=== PATIENT | female | born 1955 | race Two or more races ===

== ENCOUNTER → 2021-02-02 | Emergency (ER) | payer OTHER ==
[~2021-02-02] MED LIST: GLUCOPHAGE XR500 MG; NORVASC2.5 M1; SYNTHROID50 MCG; VASOTEC5 MG
== END | disposition home or self-care (01) ==
LOC: ER 09:46
DX: S61.022A Laceration with foreign body of left thumb without damage to nail, initial encounter (principal); W26.8XXA Contact with other sharp object(s), not elsewhere classified, initial encounter; Y93.89 Activity, other specified; Y92.018 Other place in single-family (private) house as the place of occurrence of the external cause; Y99.8 Other external cause status

== ENCOUNTER 2024-04-30 08:54 | Outpatient (CLI) | payer OTHER | END 2024-04-30 08:55 | disposition home or self-care (01) | LOC: SONOGRAMA 08:54 | PROVIDERS: ATTEND Physical Medicine & Rehabilitation | DX: M77.01 Medial epicondylitis, right elbow (principal) ==